=== PATIENT | male | born 1970 | race Caucasian/White ===

== ENCOUNTER 2017-09-16 20:29 | Observation (INO) | payer OTHER ==
[2017-09-15] MEDS: NITROGLYCERIN 0.4 MG SL TABS BTL 25'S SL PRN (21:18)
[~2017-09-16] VITALS: Ht 182.9 cm; Wt 87.6 kg
[~2017-09-16 20:29] MED LIST: LISI1TAB10 PO
[2017-09-16 20:46] LABS: BASOPHILS % (AUTO) 1 % (0-10); EOSINOPHILS # (AUTO) 0.4 10^3/uL (0.0-0.3); EOSINOPHILS % (AUTO) 6 % (0-10); LYMPHOCYTES # (AUTO) 1.2 X 10^3 (1.0-4.0); LYMPHOCYTES % (AUTO) 19 % (12-44); MEAN CORPUSCULAR HEMOGLOBIN 29 PG (25-34); MEAN CORPUSCULAR HGB CONC 34 G/DL (32-36); MEAN CORPUSCULAR VOLUME 88 FL (80-99); MEAN PLATELET VOLUME 9.2 FL (7.4-10.4); MONOCYTES # (AUTO) 0.7 X 10^3 (0.0-1.0); MONOCYTES % (AUTO) 10 % (0-12); NEUTROPHILS % (AUTO) 64 % (42-75); PLATELET COUNT 360 10^3/uL (130-400); RED CELL DISTRIBUTION WIDTH 13.4 % (10.0-14.5); WHITE BLOOD COUNT 6.3 10^3/uL (4.3-11.0)
[2017-09-16 20:55] LABS: PROTHROMBIN TIME PATIENT 12.9 SEC (12.2-14.7)
[2017-09-16 21:05] LABS: ALANINE AMINOTRANSFERASE 21 U/L (0-55); ALBUMIN 4.1 GM/DL (3.2-4.5); ANION GAP 10 MMOL/L (5-14); ASPARTATE AMINO TRANSFERASE 16 U/L (5-34); BILIRUBIN,TOTAL 0.1 MG/DL (0.1-1.0); BLOOD UREA NITROGEN 13 MG/DL (7-18); BUN/CREATININE RATIO 15; CALCIUM 9.3 MG/DL (8.5-10.1); CARBON DIOXIDE 25 MMOL/L (21-32); CHLORIDE 104 MMOL/L (98-107); CREATININE SERUM 0.85 MG/DL (0.60-1.30); GFR ESTIMATED > 60; GLUCOSE 102 MG/DL (70-105); MAGNESIUM 2.1 MG/DL (1.8-2.4); POTASSIUM 4.1 MMOL/L (3.6-5.0); SODIUM 139 MMOL/L (135-145); TOTAL PROTEIN 7.6 GM/DL (6.4-8.2)
[2017-09-16 21:12] LABS: MYOGLOBIN SERUM 36.2 NG/ML (10.0-92.0)
[2017-09-16] MEDS ORDERED: ASPIRIN 81 MG CHEW (CHILDREN'S ASA) PO ONE (21:15)
--- NOTE | 2017-09-16 21:19 | ED Chest Pain ---
General Chief Complaint: Chest Pain Stated Complaint: CHEST TIGHTNESS,LT ARM NUMBNESS,SOA Nursing Triage Note: C/O L arm numbness and tingling x 3 days with chest tightness, patient reports SOA with exertion Nursing Sepsis Screen: No Definite Risk Source: patient Exam Limitations: no limitations History of Present Illness Time seen by provider: 20:33 Initial Comments This 47-year-old man presents to the emergency room with primary complaints of headache, uncontrolled hypertension, chest tightness, dyspnea on exertion, and left arm numbness. Symptoms started 3 days ago with the left upper extremity numbness. Yesterday patient ran out of his lisinopril and started having headaches which he presumed were related to uncontrolled hypertension. He has experienced headaches with hypertension in the past. He has no local provider. His surgeon filled his blood pressure medication when he had a hernia repair. Patient also complains of some vision changes. He denies any alcohol use but does admit to methamphetamine use about one month ago. He reports his chest discomfort as 5/10 at present. It was 8/10 at its worst. Review of his chart notes a nuclear stress test performed in May 2014 which was negative. He was admitted for a chest pain workup at that time. Allergies and Home Medications Allergies Coded Allergies: No Known Drug Allergies (Unverified , 06/28/14) Home Medications Hctz/Lisinopril 1 Tab Tablet, 1 EACH PO DAILY, (Reported) Review of Systems Constitutional: no symptoms reported EENTM: No Symptoms Reported Respiratory: See HPI Cardiovascular: See HPI Gastrointestinal: No Symptoms Reported Genitourinary: No Symptoms Reported Musculoskeletal: no symptoms reported Skin: no symptoms reported Psychiatric/Neurological: See HPI Endocrine: No Symptoms Reported Past Ycrelau-Qnkxbu-Seyxfa Hx Patient Social History Alcohol Use: Denies Use Recreational Drug Use: Yes Drug of Choice: Methamphetamines Smoking Status: Never a Smoker Recent Foreign Travel: No Contact w/Someone Who Travel: No Recent Infectious Disease Expo: No Physical Abuse: No Sexual Abuse: No Immunizations Up To Date Tetanus Booster (TDap): Unknown Date of Pneumonia Vaccine: Jun 28, 2010 Surgeries History of Surgeries: Yes (carpel tunnel surgery 10 years ago) Surgeries: Abdominal (Hernia), Orthopedic Respiratory History of Respiratory Disorde: No Cardiovascular History of Cardiac Disorders: Yes Cardiac Disorders: Hypertension Neurological History of Neurological Disord: No Reproductive System Hx Reproductive Disorders: No Sexually Transmitted Disease: No HIV/AIDS: No Genitourinary History of Genitourinary Disor: No Gastrointestinal History of Gastrointestinal Di: No Musculoskeletal History of Musculoskeletal Dis: No Musculoskeletal Disorders: Fractures Endocrine History of Endocrine Disorders: No Cancer History of Cancer: No Psychosocial History of Psychiatric Problem: No Suicide Risk Score: 0 Integumentary History of Skin or Integumenta: No Blood Transfusions History of Blood Disorders: No Family Medical History Significant Family History: CAD Under 55 Years Old (Father had CT about age 50) Family Medial History: Alcoholism 19 FATHER Headache disorder Myocardial infarction 19 FATHER No Family History of: AIDS Abdominal aortic aneurysm Jorge Alberto's disease Alzheimer's disease Aphasia Arthritis Asthma Cancer of mouth Cardiovascular disease Cataracts Colon cancer Completed stroke Congenital disease Congenital heart disease Coronary thrombosis Cystic fibrosis Deafness or hearing loss Dementia Diabetes mellitus Drug abuse Dysphasia Fibrocystic disease of breast Gastroenteritis Glaucoma Hypercholesterolemia Hypertension Infertility Kidney disease Neoplasm Not obtainable due to adoption Osteoporosis Parkinson's disease Prostate cancer Psychosocial problem Respiratory disorder Seizure disorder Severe allergy Thyroid disease Tuberculosis Visual disorder Physical Exam Vital Signs Vital Sign - Last 12Hours 09/16/17 20:35 Temp 97.5 Pulse 102 Resp 18 B/P (MAP) 213/140 Pulse Ox 98 Capillary Refill : Less Than 3 Seconds General Appearance: WD/WN, Mild Distress HEENT: PERRL/EOMI, Normal ENT Inspection Neck: Normal Inspection Respiratory: Chest Non Tender, Lungs Clear, Normal Breath Sounds, No Accessory Muscle Use, No Respiratory Distress Cardiovascular: Regular Rate, Rhythm, No Edema, No Murmur, Normal Peripheral Pulses Gastrointestinal: Normal Bowel Sounds, Non Tender, Soft Extremity: Normal Inspection, Non Tender, No Calf Tenderness, No Pedal Edema, Other (Negative Jass) Neurologic/Psychiatric: Alert, Oriented x3, No Motor/Sensory Deficits, Normal 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, 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 as Tested Skin: Normal Color, Warm/Dry Progress/Results/Core Measures Results/Orders Lab Results Laboratory Tests Test 09/16/17 20:39 Range/Units White Blood Count 6.3 4.3-11.0 10^3/uL Red Blood Count 5.10 4.35-5.85 10^6/uL Hemoglobin 15.0 13.3-17.7 G/DL Hematocrit 45 40-54 % Mean Corpuscular Volume 88 80-99 FL Mean Corpuscular Hemoglobin 29 25-34 PG Mean Corpuscular Hemoglobin Concent 34 32-36 G/DL Red Cell Distribution Width 13.4 10.0-14.5 % Platelet Count 360 130-400 10^3/uL Mean Platelet Volume 9.2 7.4-10.4 FL Neutrophils (%) (Auto) 64 42-75 % Lymphocytes (%) (Auto) 19 12-44 % Monocytes (%) (Auto) 10 0-12 % Eosinophils (%) (Auto) 6 0-10 % Basophils (%) (Auto) 1 0-10 % Neutrophils # (Auto) 4.0 1.8-7.8 X 10^3 Lymphocytes # (Auto) 1.2 1.0-4.0 X 10^3 Monocytes # (Auto) 0.7 0.0-1.0 X 10^3 Eosinophils # (Auto) 0.4 H 0.0-0.3 10^3/uL Basophils # (Auto) 0.0 0.0-0.1 10^3/uL Prothrombin Time 12.9 12.2-14.7 SEC INR Comment 1.0 0.8-1.4 Activated Partial Thromboplast Time 25 24-35 SEC Sodium Level 139 135-145 MMOL/L Potassium Level 4.1 3.6-5.0 MMOL/L Chloride Level 104 98-107 MMOL/L Carbon Dioxide Level 25 21-32 MMOL/L Anion Gap 10 5-14 MMOL/L Blood Urea Nitrogen 13 7-18 MG/DL Creatinine 0.85 0.60-1.30 MG/DL Estimat Glomerular Filtration Rate > 60 BUN/Creatinine Ratio 15 Glucose Level 102 70-105 MG/DL Calcium Level 9.3 8.5-10.1 MG/DL Magnesium Level 2.1 1.8-2.4 MG/DL Total Bilirubin 0.1 0.1-1.0 MG/DL Aspartate Amino Transf (AST/SGOT) 16 5-34 U/L Alanine Aminotransferase (ALT/SGPT) 21 0-55 U/L Alkaline Phosphatase 103 40-136 U/L Myoglobin 36.2 10.0-92.0 NG/ML Troponin I < 0.30 <0.30 NG/ML Total Protein 7.6 6.4-8.2 GM/DL Albumin 4.1 3.2-4.5 GM/DL My Orders Orders - DAVEY TREVIZO MD Ekg Tracing (10/19/17 20:33) Cbc With Automated Diff (09/16/17 20:35) Magnesium (09/16/17 20:35) Chest 1 View, Ap/Pa Only (09/16/17 20:35) Cardiac Profile 1 (09/16/17 20:35) Comprehensive Metabolic Panel (09/16/17 20:35) Myoglobin Serum (09/16/17 20:35) Protime With Inr (09/16/17 20:35) Partial Thromboplastin Time (09/16/17 20:35) O2 (09/16/17 20:35) Monitor-Rhythm Ecg Trace Only (09/16/17 20:35) Saline Lock/Iv-Start (09/16/17 20:35) Aspirin Chewable Tablet (Baby Aspirin Ch (09/16/17 21:15) Nitroglycerin 0.4 Mg Btl 25's (Nitrostat (09/16/17 21:15) Ct Head Wo-R/O Stroke (09/16/17 21:57) Fentanyl Injection (Sublimaze Injection (09/16/17 22:00) Metoprolol Succinate (Xl) Tab (Toprol Xl (09/16/17 23:00) Medications Given in ED Current Medications Medications Dose Ordered Sig/Leslye Route Start Time Stop Time Status Last Admin Dose Admin Aspirin 324 mg ONCE ONCE PO 09/16/17 21:15 09/16/17 21:16 DC 09/16/17 21:18 324 MG Fentanyl Citrate 50 mcg ONCE ONCE IVP 09/16/17 22:00 09/16/17 22:01 DC 09/16/17 22:07 50 MCG Nitroglycerin 0.4 mg UD PRN SL 09/16/17 21:15 09/16/17 21:42 DC 09/16/17 21:41 0.4 MG Vital Signs/I&O Vital Sign - Last 12Hours 09/16/17 09/16/17 09/16/17 20:35 20:39 20:39 Temp 97.5 Pulse 102 Resp 18 B/P (MAP) 213/140 Pulse Ox 98 O2 Delivery Room Air Room Air Blood Pressure Mean: 164 Progress Note : Progress Note Patient was given nitroglycerin which did reduce his blood pressure and improved his pain. Pain was persistent however after nitroglycerin. Nitroglycerin intensified his headache. Fentanyl was given to help relieve pain pain did dissipate with fentanyl. CT of the head was added to rule out stroke or intracranial bleed as a cause of his left arm paresthesias. Patient has some significant risk factors for heart disease including family history and methamphetamine use. Case was reviewed with Dr. Donahue who agrees admission is appropriate for cardiac rule out and treatment of hypertensive urgency. He suggested restarting patient's lisinopril and giving Toprol-XL 100 mg 1 in the ER. Patient's pain dissipated by the time of admission. Left arm paresthesia persisted. CT was negative. ECG Initial ECG Impression Date: Sep 16, 2017 Initial ECG Impression Time: 20:33 Initial ECG Rate: 94 Initial ECG Rhythm: Normal Sinus Initial ECG Intervals: Normal Initial ECG Impression: Normal Comment Normal sinus rhythm with no ST elevation or depression. No abnormal intervals. Left ventricular hypertrophy. Diagnostic Imaging Diagonstic Imaging: Xray Plain Films/CT/US/NM/MRI: chest Comments Chest x-ray viewed by me and report reviewed. See report below: NAME: JULIO BAZZI [facility] REC#: [id number] PT STATUS: ADM Jalil : 1970 PHYSICIAN: DAVEY TREVIZO MD ADMIT DATE: 09/16/17/ICU Signed Date of Exam: 09/16/17 CHEST 1 VIEW, AP/PA ONLY Clinical indication: Patient with chest pain. Exam: Portable chest x-ray upright view. Comparisons: Chest x-ray dated 06/28/2014. Findings: Lungs/pleura: Small nipple shadows are seen overlying both lower lung [place]. Lungs are clear. There is no pneumothorax. There is no pleural effusion. Mediastinum: Unremarkable. Pulmonary vasculature: Unremarkable. Heart: Unremarkable. Bones/extrathoracic soft tissue: Unremarkable. Impression: There is no radiographic evidence of acute cardiopulmonary process. Dictated by: Dictated on workstation # [id number] Dict: 09/16/172111 Trans: 09/16/172336 Interpreted by: DINA SHER MD Electronically signed by: DINA SHER MD 09/16/170 Departure Communication (Admissions) Communication Dr. Petersen Communication/Consulting Dr. Donahue Impression Impression: Primary Impression: Hypertensive urgency Additional Impressions: Chest tightness Acute headache Qualified Codes: R51 - Headache Arm paresthesia, left Disposition: 09 ADMITTED INPATIENT Condition: Improved Admissions Decision to Admit Reason: Admit from ER (General) Decision to Admit/Date: Sep 16, 2017 Time/Decision to Admit Time: 10:42 Departure-Patient Inst. Referrals: NO,LOCAL PHYSICIAN (PCP/Family) Primary Care Physician DAVEY TREVIZO MD Sep 16, 2017 21:19
[2017-09-16] MEDS: NITROGLYCERIN 0.4 MG SL TABS BTL 25'S SL PRN ×2 (21:26→21:41)
--- OUTSIDE RECORDS SUMMARY | 2017-09-16 21:33 | XMS REPORT | Continuity of Care Document ---
Author Author [facility] Organization [facility] Address Unknown Phone Unavailable Allergies Medications Problems Procedures Results Encounters ACCT No. Visit Date/Time Discharge Status Pt. Type Provider Facility Loc./Unit Complaint [id number] 06/28/2014 20:30:00 2013 17:00:00 DIS Inpatient
[2017-09-16] MEDS ORDERED: fentaNYL INJECTION 100 MCG/2 ML AMP IVP ONE (22:00)
[2017-09-16] MEDS ORDERED: meTOproloL SUCCINATE 50 MG (TOPROL XL) TAB PO ONE (23:00)
--- OUTSIDE RECORDS SUMMARY | 2017-09-16 23:18 | XMS REPORT | Continuity of Care Document ---
Author Author [facility] Organization [facility] Address Unknown Phone Unavailable Allergies Medications Problems Procedures Results Encounters ACCT No. Visit Date/Time Discharge Status Pt. Type Provider Facility Loc./Unit Complaint [id number] 06/28/2014 20:30:00 2013 17:00:00 DIS Inpatient
[2017-09-16 23:45] VITALS: BP 172/122
[2017-09-16] MEDS ORDERED: lisINopril 20 MG (ZESTRIL) TAB PO ONE (23:45)
[2017-09-16 23:50] VITALS: BP 172/122
[2017-09-17] VITALS (12 sets, daily range): BP systolic 137–175; BP diastolic 102–126
[2017-09-17] MEDS ORDERED: lisINopril 20 MG (ZESTRIL) TAB PO ONE (01:30)
[2017-09-17] MEDS ORDERED: morphine INJ 4 MG/ML 1 ML (VIAL/SYRINGE) IV PRN (01:30)
[2017-09-17] MEDS ORDERED: NITROGLYCERIN 0.4 MG SL TABS BTL 25'S SL PRN (01:30)
--- NOTE | 2017-09-17 05:29 | Diagnostic Imaging Report ---
INDICATION: Headache TECHNIQUE: Routine non contrast-enhanced axial images were obtained from the skull base to the vertex. COMPARISON: None. FINDINGS: The ventricles and cortical sulci are normal in size and contour. There is no midline shift or mass-effect. No acute intra-axial hemorrhage is seen. There are no abnormal areas of increased or decreased density to suggest acute hemorrhage or edema. No extra-axial masses or collections are present. The bony calvarium is intact. The visualized paranasal sinuses show scattered opacification of the ethmoid air cells and small mucous retention cyst versus polyp in the left maxillary sinus. The mastoid air cells are clear. IMPRESSION: 1. No acute intracranial abnormality. No CT evidence of mass, acute infarct or intracranial hemorrhage. Dictated by: Dictated on workstation # [id number]
[2017-09-17] MEDS ORDERED: ACETAMINOPHEN 325 MG TABLET/CAPLET (TYLENOL) PO PRN (06:00)
[2017-09-17] MEDS ORDERED: INFLUENZA TRIvalent 2017-2018 0.5 ML/45 MCG SYR IM ONE (07:00)
[2017-09-17] MEDS ORDERED: ASPIRIN E.C. 325 MG (ECOTRIN) TABLET PO SCH (09:00)
[2017-09-17 09:14] LABS: CHOLESTEROL 189 MG/DL (< 200); DIRECT LDL 117 MG/DL (1-129); TRIGLYCERIDES 120 MG/DL (<150); VLDL CHOLESTEROL 24 MG/DL (5-40)
--- NOTE | 2017-09-17 09:48 | Consultation-Cardiology ---
HPI-Cardiology Cardiology Consultation: Date of Consultation 09/17/17 Time Seen by Provider: 09:00 Date of Admission Attending Physician Isaura Petersen DO Admitting Physician Miri,Local Physician Consulting Physician ROSSY MAST MD, MA. FACP, FACC, FSCAI, CCDS Physician requesting consult: Dr Petersen HPI: Chief Complaint: Reason for consultation: Uncontrolled hypertension, chest discomfort 47 yo man who has a h/o methamphetamine use but does not state when the last use was. Was admitted last night to Dr Petersen last night with uncontrolled htn and some chest discomfort. Chest discomfort was L and R parasternal, mod in intensity, sharp to dull, nonradiating, unassociated with other symptoms, w/o aggravating or relieving factors and persisted for several hours before resolution. Has a prior h/o chest discomfort, but none in the recent past, other than the mentioned episode. Denies syncope or palp or leg swelling or shortness of breath. Has had persistent L arm numbness of several days (power is intact) Review of Systems-Cardiology Review of Systems Constitutional: No weight loss, No weight gain Eyes: No vision change Ears/Nose/Throat: No ear discharge, No nasal drainage, No recent hearing loss Respiratory: As described under HPI Cardiovascular: As described under HPI Gastrointestinal: No constipation, No diarrhea, No nausea, No vomiting Genitourinary: No dysuria, No hematuria, No urine frequency changes Skin: No rash, No ulcerations Psychiatric/Neurological: As described under HPI, No focal weakness, No syncope Hematologic: bleeding abnormalities AUO-Jlujbr-Lgbvjk Hx Patient Social History Alcohol Use: Denies Use Recreational Drug Use: Yes Drug of Choice: Methamphetamines Smoking Status: Never a Smoker Recent Foreign Travel: No Recent Infectious Disease Expo: No Hospitalization with Isolation: Denies Physical Abuse Screen: No Sexual Abuse: No Immunizations Up To Date Tetanus Booster (TDap): Unknown Date of Pneumonia Vaccine: Jun 28, 2010 Past Medical History PMH As described under Assessment. Family Medical History Family History: Alcoholism 19 FATHER Headache disorder Myocardial infarction 19 FATHER No Family History of: AIDS Abdominal aortic aneurysm Jorge Alberto's disease Alzheimer's disease Aphasia Arthritis Asthma Cancer of mouth Cardiovascular disease Cataracts Colon cancer Completed stroke Congenital disease Congenital heart disease Coronary thrombosis Cystic fibrosis Deafness or hearing loss Dementia Diabetes mellitus Drug abuse Dysphasia Fibrocystic disease of breast Gastroenteritis Glaucoma Hypercholesterolemia Hypertension Infertility Kidney disease Neoplasm Not obtainable due to adoption Osteoporosis Parkinson's disease Prostate cancer Psychosocial problem Respiratory disorder Seizure disorder Severe allergy Thyroid disease Tuberculosis Visual disorder Allergies and Home Medications Allergies Coded Allergies: No Known Drug Allergies (Unverified , 06/28/14) Home Medications Hctz/Lisinopril 1 Tab Tablet, 1 EACH PO DAILY, (Reported) Physical Exam-Cardiology Physical Exam Vital Signs/I&O Vital Sign - Last 12Hours 09/16/17 09/16/17 09/16/17 09/16/17 23:14 23:45 23:50 23:52 Temp 97.0 98.6 Pulse 74 74 73 Resp 17 22 20 B/P (MAP) 172/122 172/122 Pulse Ox 99 98 98 98 O2 Delivery Room Air Room Air Room Air Room Air 09/17/17 09/17/17 09/17/17 09/17/17 00:00 00:10 00:15 00:30 Pulse 72 72 77 Resp 20 15 21 B/P (MAP) 163/118 163/118 175/126 Pulse Ox 99 98 99 99 O2 Delivery Room Air Room Air Room Air Room Air 09/17/17 09/17/17 09/17/17 09/17/17 00:45 01:00 01:00 02:00 Pulse 71 73 73 73 Resp 18 18 15 B/P (MAP) 171/122 170/110 164/105 Pulse Ox 98 98 97 O2 Delivery Room Air Room Air Room Air 09/17/17 09/17/17 09/17/17 09/17/17 03:00 04:00 04:00 04:00 Temp 98.1 Pulse 78 70 Resp 11 16 B/P (MAP) 155/108 159/111 Pulse Ox 99 98 99 O2 Delivery Room Air Room Air Room Air Room Air 09/17/17 09/17/17 09/17/17 09/17/17 05:00 06:00 07:00 08:00 Temp 97.1 Pulse 67 64 70 Resp 16 16 B/P (MAP) 152/110 147/112 Pulse Ox 98 99 O2 Delivery Room Air Room Air Room Air 09/17/17 08:47 Pulse Ox 99 O2 Delivery Room Air Capillary Refill : Less Than 3 Seconds Constitutional: AAO x 3, well-developed, well-nourished HEENT: PERRL, EOMI, oral hygience is good Neck: carotid pulses are 2 + bilaterally, with good upstrokes Respiratory: No accessory muscle use, lungs clear to percussion, lungs clear to auscultation Cardiovascular: regular rate-rhythm, S1 and S2 Gastrointestinal: No tender, soft, No guarding, No rebound, audible bowel sounds Extremities: No clubbing, No cyanosis, No significant edema Neurologic/Psychiatric: oriented x 3, power is 5/5 both on sides Skin: No rash on exposed areas, No ulcerations on exposed areas Data Review Labs Laboratory Tests 09/16/17 20:39: White Blood Count 6.3, Red Blood Count 5.10, Hemoglobin 15.0, Hematocrit 45, Mean Corpuscular Volume 88, Mean Corpuscular Hemoglobin 29, Mean Corpuscular Hemoglobin Concent 34, Red Cell Distribution Width 13.4, Platelet Count 360, Mean Platelet Volume 9.2, Neutrophils (%) (Auto) 64, Lymphocytes (%) (Auto) 19, Monocytes (%) (Auto) 10, Eosinophils (%) (Auto) 6, Basophils (%) (Auto) 1, Neutrophils # (Auto) 4.0, Lymphocytes # (Auto) 1.2, Monocytes # (Auto) 0.7, Eosinophils # (Auto) 0.4H, Basophils # (Auto) 0.0, Prothrombin Time 12.9, INR Comment 1.0, Activated Partial Thromboplast Time 25, Sodium Level 139, Potassium Level 4.1, Chloride Level 104, Carbon Dioxide Level 25, Anion Gap 10, Blood Urea Nitrogen 13, Creatinine 0.85, Estimat Glomerular Filtration Rate > 60 , BUN/Creatinine Ratio 15, Glucose Level 102, Calcium Level 9.3, Magnesium Level 2.1, Total Bilirubin 0.1, Aspartate Amino Transf (AST/SGOT) 16, Alanine Aminotransferase (ALT/SGPT) 21, Alkaline Phosphatase 103, Myoglobin 36.2, Troponin I < 0.30, Total Protein 7.6, Albumin 4.1 09/17/17 02:28: Troponin I < 0.30 09/17/17 08:44: Troponin I < 0.30, Triglycerides Level 120, Cholesterol Level 189, LDL Cholesterol Direct 117, VLDL Cholesterol 24, HDL Cholesterol 57 Laboratory Tests 09/16/17 20:39 ECG Impression ECG Comment ECG on 09/16/17: NSR with voltage for LVH A/P-Cardiology Assessment/Admission Diagnosis Chest discomfort w/o any evidence of ACS Myocardial perfusion imaging normal in Jun 2014 Uncontrolled hypertension LVH due to uncontrolled hypertension Noncompliance with meds H/o methamphetamine use L arm paresthesia, managed by Dr Petersen. No acute findings on CT head of Discussion and Recomendations * We advised immediate and complete cessation of any drug or tobacco use * We advised compliance with meds * Beta-orion and TERRENCE-inhib for bp control * Management of L arm paresthesia is with Dr Petersen Clinical Quality Measures AMI/AHF: ASA po Prior to arrival: No DVT/VTE Risk/Contraindication: Risk Factor Score Per Nursin RFS Level Per Nursing on Admit: 1=Low/No VTE PPX ROSSY MAST MD FACP FAC CCDS Sep 17, 2017 09:48
[2017-09-17] MEDS ORDERED: meTOprolol SUCCINATE 100 MG (TOPROL XL) TAB PO NR (10:00)
[2017-09-17] MEDS ORDERED: KETOROLAC 30 MG/ML VIAL IVP ONE (10:15)
[2017-09-17] MEDS ORDERED: LISI-552 PO ×2 (10:17→11:22)
[2017-09-17] MEDS ORDERED: ASPI325T32 PO (10:17)
[2017-09-17] MEDS ORDERED: METO100T6 PO (11:22)
[2017-09-17] MEDS ORDERED: ASPIRIN E.C. 325 MG (ECOTRIN) TABLET PO PRN (11:30)
--- NOTE | 2017-09-17 12:22 | Short Stay Summary-Hospitalist ---
HPI History of Present Illness: HPI/Chief Complaint CC: Chest pain with left arm numbness and HTN HPI: This is a 47 yoWM pt who presented to the ER for chest pain. 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 Donahue will see pt as out-pt and would like to have an MRI. 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 Pt states he is able to use his left arm and hand, it just feels odd to him Pt denies smoking confirms occasional ETOH usage. Pt denies issues with chest pain. Physical exam stable. Lungs sound perfect Pt confirms previous midline hernia repair. Pt confirms a family hx of high BP. Pt states his father from heart attack. Pt confirms pharmacy as [facility], but since pt denies insurance coverage, he may need to get his new medications from [facility]. Pt was informed that SW will be talking to him to address this issue Pt was advised to ambulate and eat Pt was informed that further heart testing with Dr. Donahue will be needed in an out-pt setting. Pt states he has a headache and confirms having Nitroglycerine. I will prescribe Toradol for this Scribed by Zulma Khan under the direct supervision of Dr. Cuello. 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) Alcohol Use: Denies Use Recreational Drug Use: Yes Drug of Choice: Methamphetamines Smoking Status: Never a Smoker Physical Abuse Screen: No Sexual Abuse: No Recent Foreign Travel: No Contact w/other who traveled: No Recent Infectious Disease Expo: No Immunizations Up To Date Tetanus Booster (TDap): Unknown Date of Pneumonia Vaccine: Jun 28, 2010 Surgeries Yes (carpel tunnel surgery 10 years ago) Abdominal (Hernia), Orthopedic Respiratory No Cardiovascular Yes Hypertension Neurological No Reproductive System Hx Reproductive Disorders: No Sexually Transmitted Disease: No HIV/AIDS: No Genitourinary No Gastrointestinal Yes (HIATAL HERNIA REPAIR.) Hiatal Hernia Musculoskeletal No Fractures Endocrine History of Endocrine Disorders: No Cancer No Psychosocial History of Psychiatric Problem: No Integumentary History of Skin or Integumenta: No Blood Transfusions History of Blood Disorders: No Family Medical History Significant Family History: CAD Under 55 Years Old (Father had MN about age 50) Family Hx: Alcoholism 19 FATHER Headache disorder Myocardial infarction 19 FATHER No Family History of: AIDS Abdominal aortic aneurysm Jorge Alberto's disease Alzheimer's disease Aphasia Arthritis Asthma Cancer of mouth Cardiovascular disease Cataracts Colon cancer Completed stroke Congenital disease Congenital heart disease Coronary thrombosis Cystic fibrosis Deafness or hearing loss Dementia Diabetes mellitus Drug abuse Dysphasia Fibrocystic disease of breast Gastroenteritis Glaucoma Hypercholesterolemia Hypertension Infertility Kidney disease Neoplasm Not obtainable due to adoption Osteoporosis Parkinson's disease Prostate cancer Psychosocial problem Respiratory disorder Seizure disorder Severe allergy Thyroid disease Tuberculosis Visual disorder Review of Systems Constitutional: see HPI EENTM: no symptoms reported Respiratory: no symptoms reported Cardiovascular: chest pain Gastrointestinal: no symptoms reported Genitourinary: no symptoms reported Musculoskeletal: no symptoms reported Skin: no symptoms reported Psychiatric/Neurological: Paresthesia, Tingling All Other Systems Reviewed Negative Unless Noted: Yes Physical Exam Physical Exam Vital Signs Vital Sign - Last 12Hours 09/16/ 20:35 Temp 97.5 Pulse 102 Resp 18 B/P (MAP) 213/140 Pulse Ox 98 Capillary Refill : Less Than 3 Seconds General Appearance: No Apparent Distress, WD/WN Eyes: Bilateral Eye Normal Inspection, Bilateral Eye PERRL HEENT: PERRL/EOMI, Normal ENT Inspection, Pharynx Normal Neck: Full Range of Motion, Normal Inspection, Non Tender, Supple, Carotid Bruit Respiratory: Chest Non Tender, Lungs Clear, Normal Breath Sounds, No Accessory Muscle Use, No Respiratory Distress Cardiovascular: Regular Rate, Rhythm, No Edema, No Gallop, No JVD, No Murmur, Normal Peripheral Pulses Gastrointestinal: Normal Bowel Sounds, No Organomegaly, No Pulsatile Mass, Non Tender, Soft Back: Normal Inspection, No CVA Tenderness, No Vertebral Tenderness Extremity: Normal Capillary Refill, Normal Inspection, Normal Range of Motion, Non Tender, No Calf Tenderness, No Pedal Edema Neurologic/Psychiatric: Alert, Oriented x3, No Motor/Sensory Deficits, Normal Mood/Affect Skin: Normal Color, Warm/Dry Lymphatic: No Adenopathy Results Results/Procedures Lab Laboratory Tests 09/16/17 20:39 Short Stay Diagnosis Discharge Diagnosis-Short Stay Admission Diagnosis Assessment: Chest pain with hypertensive urgency with left arm numbness Methamphetamine use Family history of heart disease but patient underwent nuclear testing in 2013 that was normal 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 Donahue and establish care with [facility] Clinical Quality Measures AMI/AHF: ASA po Prior to arrival: No DVT/VTE Risk/Contraindication: Risk Factor Score Per Nursin RFS Level Per Nursing on Admit: 1=Low/No VTE PPX ISAURA CUELLO DO Sep 17, 2017 12:22
[2017-09-18] MEDS ORDERED: meTOprolol SUCCINATE 100 MG (TOPROL XL) TAB PO SCH (09:00)
[2017-09-18] MEDS ORDERED: lisINopril 20 MG (ZESTRIL) TAB PO SCH ×2 (09:00)
== END 2017-09-17 11:20 | disposition home or self-care (01) ==
LOC: EDUNIT# 20:29 → ER 20:32 → UNDOADMOB 22:59 → ICU 22:59 → UNDODISOB 09-17 13:05
PROVIDERS: ADMIT Internal Medicine; ATTEND Internal Medicine
DX: I16.0 Hypertensive urgency (principal); R07.9 Chest pain, unspecified; R51 Headache; R20.2 Paresthesia of skin; F15.90 Other stimulant use, unspecified, uncomplicated; Z91.14 Patient's other noncompliance with medication regimen; Z79.899 Other long term (current) drug therapy; Z82.49 Family history of ischemic heart disease and other diseases of the circulatory system
CPT/HCPCS: 36415; 70450; 71010; 80053; 80061; 83735; 83874; 84484; 85025; 85610; 85730; 93005; 93041; 96374; 99211

== ENCOUNTER → 2017-12-21 | Outpatient (CLI) | payer SELFPAY ==
[~2017-12-21] VITALS: Ht 182.9 cm; Wt 93.0 kg
[~2017-12-21] MED LIST changes: +ASPI325T32 PO; +CATHETER FLUSH 10 ML SYR IV PRN; +LISI-552 PO; +METO100T6 PO
[2017-12-21 09:26] VITALS: BP 178/103
[2017-12-21 09:27] VITALS: BP 190/90
[2017-12-21 09:37] VITALS: BP 200/95
[2017-12-21 09:39] VITALS: BP 196/107
--- NOTE | 2017-12-21 16:54 | STRESS TEST ---
DATE OF SERVICE: 12/21/2017 RESTING AND POST-EXERCISE TECHNETIUM-99M TETROFOSMIN SPECT CT IMAGING ORDERING PHYSICIAN: Nidhi Donahue MD, MA, FACP, FACC CLINICAL DIAGNOSIS: Chest discomfort. Baseline images were carried out after injection of 10.63 mCi of technetium-99m Tetrofosmin. Subsequently, exercise was carried out on a treadmill. Adam protocol was employed. Heart rate responses to exercise was normal. Blood pressure response to exercise was somewhat hypertensive. A 31.3 mCi technetium-99m Tetrofosmin were injected after he had attained more than 85% of maximum predicted heart rate and the exercise was continued for another minute. At peak exercise, there appeared to be approximately [address] segment depression. The test was stopped on account of fatigue. He did not report any chest discomfort. He attained 12.1 METS of workload and 93% of maximum predicted heart rate. He exercised for a total of 10 minutes and 33 seconds in the Adam protocol. Review of images at rest and following stress does not indicate any significant perfusion defects consistent with significant myocardial ischemia or infarction. Gated images show normal global left ventricular systolic function with normal regional wall motion. Left ventricular ejection fraction is calculated to be 68%. Left ventricular end-diastolic volume is 111 mL. TID is absent (0.95). CONCLUSIONS: 1. No evidence of any significant myocardial ischemia or infarction on this study. 2. Normal regional wall motion. 3. Normal global left ventricular systolic function with a calculated ejection fraction of 68%. 4. Somewhat hypertensive response to exercise. Job ID: [id number] DocumentID: [id number] Dictated Date: 12/21/2017 16:23:22 Systems Planner Date: 12/21/2017 16:54:11 Dictated By: NIDHI DONAHUE MD, MA, FACP, FACC, [facility]
== END ==
LOC: CARD 07:38
PROVIDERS: ATTEND Internal Medicine Cardiovascular Disease
DX: I10 Essential (primary) hypertension (principal); R07.89 Other chest pain
CPT/HCPCS: 78452; 93017